=== PATIENT | male | born 1955 | race Caucasian/White ===

== ENCOUNTER → 2023-08-31 14:28 | Outpatient (CLI) | payer MEDICARE, SELFPAY ==
[2023-09-03 08:13] LABS: PSA Free % 14.3 % (.); PSA, Total 3.7 ng/mL (0.0-4.0)
== END ==
PROVIDERS: Family Provider Family Medicine; PCP Family Medicine; Visit Provider Family Medicine
DX: R97.20 Elevated prostate specific antigen [PSA] (principal)
CPT/HCPCS: 84153; 84154